=== PATIENT | female | born 1960 | race Caucasian/White ===

== ENCOUNTER 2017-01-17 06:26 | Observation (INO) | payer BC ==
[2016-12-29 10:01] VITALS: BMI 39.0
--- NOTE | 2016-12-29 10:37 | PAT Medication Instructions ---
Service Date Dec 29, 2016. Current Home Medication List Albuterol (Ventolin Hfa), 2 PUFF INH Q4 PRN for SOB/Wheezing Aspirin (Aspirin Ec), 81 MG PO QAM Atorvastatin (Lipitor), 10 MG PO HS Fish Oil ([place]-3), 1 CAP PO BID Fluoxetine (Prozac), 20 MG PO QAM Lorazepam (Ativan), 0.5 MG PO HS Metformin Hcl (Glucophage), 1,000 MG PO BID Metoprolol Succ (Toprol Xl) (Toprol-Xl), 50 MG PO QAM Multivitamin (Multivitamin), 1 TAB PO QAM Potassium Chloride (K-Tabs), 20 MEQ PO QAM Triamterene/Hctz (Dyazide 37.5MG/25MG), 1 TAB PO QAM [Nasonex], 1 SPRAY TIGIST UD PRN for PRN Medication Instructions For Your Scheduled Surgery - Hold the following medications per surgeon's instructions: Aspirin (Aspirin Ec), 81 MG PO QAM Metoprolol Succ (Toprol Xl) (Toprol-Xl), 50 MG PO QAM - Hold the following medications 2 weeks prior to surgery: Fish Oil ([place]-3), 1 CAP PO BID - Hold the following medications 48 hours prior to surgery: Metformin Hcl (Glucophage), 1,000 MG PO BID - Hold the following medications the morning of surgery: Multivitamin (Multivitamin), 1 TAB PO QAM Potassium Chloride (K-Tabs), 20 MEQ PO QAM Triamterene/Hctz (Dyazide 37.5MG/25MG), 1 TAB PO QAM - Take the following medications the morning of surgery with a sip of water OTHERWISE NOTHING TO EAT OR DRINK AFTER MIDNIGHT: Albuterol (Ventolin Hfa), 2 PUFF INH Q4 PRN for SOB/Wheezing (USE IF NEEDED; BRING TO HOSPITAL) [Nasonex], 1 SPRAY TIGIST UD PRN for PRN Fluoxetine (Prozac), 20 MG PO QAM - Take the following medications as scheduled the night before surgery: Albuterol (Ventolin Hfa), 2 PUFF INH Q4 PRN for SOB/Wheezing [Nasonex], 1 SPRAY TIGIST UD PRN for PRN Atorvastatin (Lipitor), 10 MG PO HS Lorazepam (Ativan), 0.5 MG PO HS If you have any questions please call us at [phone] or [phone] or [phone]
[2016-12-29 11:29] LABS: BASO % 0.6 %; BASO ABS # 0.06 K/uL (0-0.2); COMPLETE YES; EOS % 3.2 %; HEMATOCRIT 35.5 % (37-47); IG% 0.1 %; LYMPH % 26.6 %; LYMPH ABS # 2.55 K/uL (1.2-3.4); MEAN CELL VOLUME 82.4 fL (80-100); MEAN CORPUSCULAR HEMOGLOBIN 26.7 pg (25-34); MEAN CORPUSCULAR HGB CONC 32.4 g/dl (32-36); MEAN PLATELET VOLUME 8.9 fL (7.4-10.4); MONO % 7.9 %; NEUT % 61.6 %; PLATELET COUNT 332 K/uL (130-400); RED BLOOD COUNT 4.31 M/uL (4.2-5.4); WHITE BLOOD COUNT 9.59 K/uL (4.8-10.8)
[2016-12-29 11:51] LABS: BUN/CREATININE RATIO 11.7 (10-20); CREATININE 0.81 mg/dl (0.60-1.20); POTASSIUM 3.8 mmol/L (3.5-5.1)
[2016-12-29 11:52] LABS: CALCIUM 9.1 mg/dl (8.5-10.1)
[~2017-01-17] VITALS: Ht 167.6 cm; Wt 110.9 kg
[2017-01-17] VITALS (9 sets, daily range): BP systolic 115–157; BP diastolic 69–87; PULSE 73–90; TEMP 36.6–37.6; O2SAT 94–98; Ht 167.6 cm; Wt 110.9 kg
[~2017-01-17 06:26] MED LIST: ASPI81TA28 PO; ATOR10TA88 PO; FLUO20CA35 PO; LACTATED RINGER'S 1000ML 1,000 ML IV SCH; LORA-741 PO; MCRK/10 PO; METF1000 PO; METO50TA7 PO; MULT-506 PO; NASONEX NAE; OMEG10007 PO; PROPOFOL IV EMULSION 10 MG/ML 100 ML VIAL IV ONE; PRVHFAIN INH; TRIA37.5 PO
[2017-01-17] MEDS ORDERED: FENTANYL CITRATE INJ 50 MCG/1 ML 2 ML VIAL ONE (07:45)
[2017-01-17] MEDS ORDERED: MIDAZOLAM HCL 1 MG/ML 2ML VIAL ONE (07:45)
--- NOTE | 2017-01-17 07:56 | History & Physical Bridge Note ---
H&P Re-Evaluation Bridge Note: I have examined the patient, reviewed the History & Physical and in the interval since the performance of the History & Physical I have noted the following changes of clinical significance: No changes noted
[2017-01-17] MEDS ORDERED: LIDOCAINE HCL 2% 2 ML VIAL (20MG/ML) ONE (08:37)
[2017-01-17] MEDS ORDERED: PROPOFOL IV EMULSION 10 MG/ML 20 ML VIAL IV ONE (08:37)
[2017-01-17] MEDS ORDERED: HEPARIN SOD (PORCINE) 1000 UNIT/ML 10 ML VIAL ONE (09:28)
--- NOTE | 2017-01-17 11:44 | Procedure Note ---
Post-Mod Sedation Assessment General Date of Moderate Sedation Jan 17, 2017. Vital Signs: Vital Signs Past 12 Hours Date Time Temp Pulse Resp B/P Pulse Ox O2 Delivery O2 Flow Rate FiO2 01/17/17 06:45 37.1 90 18 157/69 98 Room Air Review - Discharge Criteria Vital Signs Stable: Yes Alert/Oriented/Conversant: Yes Returned to Baseline Mental St: Yes Nausea Absent/Minimal: Yes Pain/Discomfort/Absent/Minimal: Yes Normal/Baseline Respirations: Yes Active Bleeding?: No Pt Received D/C Instructions: N/A Prescriptions Given: None Specific Proced. D/C Criteria Distal Pulses Present (Cardiac: Yes Groin site assessed-Card Cath: Yes Voided Prior To Discharge: N/A Discharged Patients Adult Escort/Transportation: N/A
[2017-01-17] MEDS ORDERED: ALBUTEROL HFA 8 GM INHALER INH PRN (11:45)
--- NOTE | 2017-01-17 11:46 | [facility] Post Operative Brief Note ---
Immediate Operative Summary Operative Date Jan 17, 2017. Pre-Operative Diagnosis SVT Post-Operative Diagnosis PAT Procedure(s) Performed EPS, 3d mapping of His bundle, C/S os and activation map of the SVT/PAT, Radiofrequency ablation of PAT Surgeon rebeka [place] Feed Attendant Surgeon(s) none Estimated Blood Loss <5cc Findings none Fluids (cc crystalloids) 500cc Specimens none Drains none Anesthesia 4mg versed and 200mcg fentanyl Complication(s) None Disposition PCU
[2017-01-17] MEDS ORDERED: IV FLUIDS COMPLETED PRN (12:00)
[2017-01-17] MEDS ORDERED: ACETAMINOPHEN 325 MG TAB ONE (12:12)
[2017-01-17] MEDS ORDERED: FLUTICASONE PROPIONATE NA SPR 16 GM BTL NAE PRN (14:00)
--- NOTE | 2017-01-17 14:11 | Discharge Instructions ---
Discharge Instructions Admission Reason for Admission: Supraventricular Tachycardia Discharge Discharge Diagnosis / Problem: pat Discharge Goals Goal(s): Improve function Activity Recommendations Activity Limitations: as noted below (do not any heavy lifiting or squating for 1 week) . Current Hospital Diet Patient's current hospital diet: Regular Diet Discharge Diet Recommended Diet: AHA Diet (Heart Healthy) Procedures Procedures Performed: EPS, 3d mapping of His bundle, C/S os and activation map of the SVT/PAT, Radiofrequency ablation of PAT Pending Studies Studies pending at discharge: no Medical Emergencies . Who to Call and When: Medical Emergencies: If at any time you feel your situation is an emergency, please call 911 immediately. . Non-Emergent Contact Non-Emergency issues call your: Hog Driver . . "Provider Documentation" section prepared by Lala Harrell. VTE Core Measure Inpt VTE Proph given/why not?: Treatment not indicated
--- NOTE | 2017-01-17 14:14 | Discharge Summary ---
Discharge Summary Date of Service Jan 17, 2017. Discharge Summary Admission Date: Jan 17, 2017 at 11:43 Discharge Date: Jan 18, 2017 Discharge Disposition: Home Principal Diagnosis: pat Secondary Diagnoses/Problems: htn, hld Procedures: EPS, 3d mapping of the His bundle and c/s os along with activation mapping of the atrial tachycardia, radiofrequency ablation of atrial tachycardia Medication Reconciliation Continued Medications: Albuterol (Ventolin Hfa) 60 Puffs/5400 Mcg Aers 2 PUFF INH Q4 PRN for SOB/Wheezing Aspirin (Aspirin Ec) 81 Mg Tab 81 MG PO QAM Atorvastatin (Lipitor) 10 Mg Tab 10 MG PO HS, TAB Fish Oil ([place]-3) 1 Ea Cap 1 CAP PO BID, CAP Fluoxetine (Prozac) 20 Mg Cap 20 MG PO QAM, CAP Lorazepam (Ativan) 0.5 Mg Tab 0.5 MG PO HS, TAB Metformin Hcl (Glucophage) 1,000 Mg Tab 1000 MG PO BID, TAB Metoprolol Succ (Toprol Xl) (Toprol-Xl) 50 Mg Tabcr 50 MG PO QAM, #30 TAB Multivitamin (Multivitamin) Tab 1 TAB PO QAM, TAB Potassium Chloride (K-Tabs) 10 Meq Tabcr 20 MEQ PO QAM Triamterene/Hctz (Dyazide 37.5MG/25MG) Cap 1 TAB PO QAM, CAP [Nasonex] () 1 SPRAY TIGIST UD PRN for PRN Admission Information Physical Exam (per Admitting): aaox3, nad supple, no jvd nrl s1/s2 no murmur cta b/l no w/r/r soft nt/nd no edema b/l Hospital Course Pt admitted for elective EPS with possible ablation due to SVT. She underwent procedure found to have AT and it was ablated without any complications. She was monitored overnight and discharged home in stable condition. Total time spent on discharge = This includes examination of the patient, discharge planning, medication reconciliation, and communication with other providers. Discharge Instructions ACTIVITY RECOMMENDATIONS: It is common to feel weak and fatigue for a few days. * Do not drive or operate any motorized equipment for the next three days. * Limit stair usage (2 or 3 trips a day only) for the next three days. * Do not lift anything heavier than 10 pounds for the next three days. * Do not engage in vigorous exercise or any sports for the next five days. * You may shower the day after your procedure, but do not immerse the area for three days. Cleanse the site gently with soap and water. SPECIAL CARE INSTRUCTIONS: * You may replace the pressure dressing or band-aid the morning after the procedure. * After your procedure, it is normal to have a small bruise or small lump at the site. Examine your site daily for any change in the bruise or lump, redness, swelling, drainage or numbness. Notify your doctor if any change. BLEEDING: * If there is a small amount of bleeding at the site, lie down and apply firm pressure with a clean cloth for ten minutes. When the bleeding stops, lie quietly keeping the procedure limb straight for six hours. Notify your doctor as soon as possible. * If the bleeding does not stop after ten minutes or if there is a large amount of bleeding or spurting, call 911 immediately. Continue to lie down and hold firm pressure until help arrives. SKIN IRRITATION: * You may experience some redness and/or swelling in the area where radiation was administered. If any skin irritation occurs, please contact your family physician. FOLLOW UP VISIT: Keep any scheduled doctor appointments.
--- NOTE | 2017-01-17 15:41 | Anesthesiology Progress Note ---
Anesthesia Post Op Note Date & Time Jan 17, 2017 at 15:41 Vital Signs Pain Intensity: 4.0 Vital Signs Past 12 Hours Date Time Temp Pulse Resp B/P Pulse Ox O2 Delivery O2 Flow Rate FiO2 01/17/17 13:15 82 18 148/87 94 Room Air 01/17/17 13:00 85 18 143/84 98 Room Air 01/17/17 12:45 36.8 84 20 149/82 94 Room Air 01/17/17 12:35 36.6 84 18 128/80 94 Room Air 01/17/17 12:05 88 16 128/78 96 Nasal Cannula 3 01/17/17 11:55 89 16 119/78 96 Nasal Cannula 3 01/17/17 11:45 72 16 121/76 96 Nasal Cannula 3 01/17/17 11:38 78 16 118/83 96 Nasal Cannula 3 01/17/17 06:45 37.1 90 18 157/69 98 Room Air Notes Mental Status: alert / awake / arousable Nausea / Vomiting: adequately controlled Pain: adequately controlled Airway Patency, RR, SpO2: stable & adequate BP & HR: stable & adequate Hydration State: stable & adequate Anesthetic Complications: no major complications apparent
--- NOTE | 2017-01-17 16:13 | OPERATIVE REPORT ---
DATE OF OPERATION: 01/17/2017 PREOPERATIVE DIAGNOSIS: Supraventricular tachycardia. POSTOPERATIVE DIAGNOSIS: Paroxysmal atrial tachycardia. PROCEDURES: Electrophysiology study, 3D mapping of the His bundle region, coronary sinus os and activation 3D mapping of the atrial tachycardia, radiofrequency ablation of the atrial tachycardia. SURGEON: Dr. Lala Harrell. SAP BUSINESS OBJECTS DEVELOPER: None. ANESTHESIA: Monitored anesthetic care via anesthesiology. A total of 4 mg of Versed, 200 mcg of fentanyl and 1500 mg of propofol. IV FLUIDS: 500 mL. BLOOD LOSS: Less than 5 mL. COMPLICATIONS: None. CONDITION: Stable. URINE OUTPUT: Not applicable. SPECIMENS: None. FINDINGS: None. DRAINS: None. INDICATIONS: This is a 56-year-old female who has a past medical history of hypertension, hyperlipidemia. She has a history of SVT, in which she ended up in the hospital, received adenosine at a rate of 180 beats per minute and it broke to sinus rhythm and so she requested electrophysiology study with possible ablation. CONSENT: Consent was obtained prior to the patient going to the electrophysiology lab. The patient was informed of the risks, benefits, alternatives to the procedure. Risks include but not limited to sudden cardiac , cardiac arrhythmias, cerebrovascular accident, myocardial infarction, injury to the blood vessels, chamber of the heart with the [place] electrical system where she would need a permanent pacemaker, bleeding and infection. The patient understood these risks and agreed to the procedure as planned. Informed consent was obtained. DESCRIPTION OF THE PROCEDURE: The patient was brought into the electrophysiology lab in fasting state. She was connected to continuous cardiac monitoring. A timeout was performed to ensure patient's identity and procedure correctly. The patient received monitored anesthetic care via anesthesiology for the entire case for her comfort level. [place] precautions were maintained throughout the procedure. The patient was prepped and draped over the bilateral groins in normal surgical standard fashion. 10 mL of 1% lidocaine were given in the bilateral groins for local anesthetic. Using the modified Seldinger technique, venous access was obtained in the following manner. The left femoral vein had a 6-Mongolian sheath, followed by a Raymond quad positioned in the right ventricular apex. A 7-Mongolian sheath with initially a Hisser catheter over the His bundle, but then this was eventually changed out for a Cournand into the His bundle. A 7-Mongolian sheath with a Instructure decapolar DF curve positioned down into the His bundle. The right femoral vein initially had a 6-Mongolian sheath with a Raymond quad catheter positioned out into the high right atrium and eventually the SRO sheath with a Mobile Iron ThermoCool SmartTouch ablation catheter. Electrophysiology study was performed with the following findings: Baseline measurements: WI interval 200 milliseconds, QRS 78 milliseconds, QT 300 milliseconds. Sinus cycle length 672 milliseconds, AH 126 milliseconds, HV 46 milliseconds. Of note, when I was positioning the catheters, she did go into SVT and we pace terminated her out of it. Atrial burst pacing was performed and AV Wenckebach was found to be 320 milliseconds. With atrial extrastimuli from the high right atrium, the atrial ERP was found to be 600/240 and 400/200 with AV node ERP less than or equal to the atrial. With double atrial extrastimuli at 400, 350 and 230, tachycardia was induced. Tachycardia cycle length was 368 milliseconds. The VA time was 130 milliseconds, the HV time was positive 40 milliseconds. There was a concentric retrograde A conduction with the earliest A being in the His bundle region. We then went to start 3D mapping of what we thought was atrial tachycardia based on our findings. I did also have to reinduce at one point the tachycardia and this time I needed triples at 400, 380, 270 and 250. We continued to 3D map, localizing the earliest retrograde A to the low septal area, actually very close to the coronary sinus os. The earliest A we got with 3D mapping was about 34 milliseconds, gave a series of radiofrequency ablations at 35 feldman to this region. With 1 ablation, the patient did break out of her atrial tachycardia with the Vv in the last signal. We continued to give a few more anderson in that area. It was also along a ridge area, so we gave anderson on either side of this ridge. Then I removed the ablation catheter from the heart, but it still remained in the body and I performed post-ablation electrophysiology study with the following findings: Sinus cycle length 552 milliseconds, AH is 182 milliseconds, HV 46 milliseconds. With atrial burst pacing, the AV Wenckebach was 320 milliseconds. With atrial extrastimuli, the atrial ERP was 500/240 and 400/240 with the AV node ERP less than or equal to the atrial. With right ventricular extrastimuli, the right ventricular ERP was 600/240 and 400/220. I gave up to triples of extrastimuli from the high right atrium as well as even from the proximal left coronary sinus region and I was not able to induce any atrial tachycardia. Furthermore, I gave atrial burst pacing all the way down to 200 and did not induce any atrial tachycardia. There was an appropriate adequate waiting. Since she was so easily inducible with the catheters and then with doubles, I did not opt to do Isuprel infusion. I deemed that we had successful ablation with her atrial tachycardia. The catheters were all removed from the body and then the sheaths were pulled and manual compression was used to restore hemostasis. IMPRESSION 1. Inducible paroxysmal atrial tachycardia with a tachycardia cycle length 368 milliseconds. VA time of 130 milliseconds, HV of 40 milliseconds and originating from the low right atrial septum, successfully ablated. 2. Normal atrioventricular ernestina function. 3. No evidence of dual atrioventricular ernestina pathway. PLAN: Monitor patient overnight, 12-lead ECG. She cannot do any heavy lifting or squatting for 1 week. She should follow up in my [place] office in 1 month. I attest to the content of the Intraoperative Record and any orders documented therein. Any exceptio ns are noted below.
[2017-01-17] MEDS: METFORMIN HCL 500 MG TAB PO SCH (16:45)
[2017-01-17] MEDS: ACETAMINOPHEN 325 MG TAB PO PRN (17:57)
[2017-01-17] MEDS ORDERED: LORAZEPAM 0.5 MG TAB PO SCH (21:00)
[2017-01-17] MEDS ORDERED: ATORVASTATIN 10 MG TAB PO SCH (21:00)
[2017-01-18] MEDS: ACETAMINOPHEN 325 MG TAB PO PRN (03:30)
[2017-01-18 04:11] VITALS: BP 137/79; PULSE 78; TEMP 36.9; O2SAT 95
[2017-01-18 07:35] VITALS: BP 152/83; PULSE 81; TEMP 37.3; O2SAT 96
[2017-01-18] MEDS ORDERED: PNEUMOCOCCAL POLYSACCHARIDES 25 MCG/0.5 ML VIAL/SYR IM. ONE (08:00)
[2017-01-18] MEDS ORDERED: PNEUMOCOCCAL ADMINISTRATION CHARGE ONE (08:00)
[2017-01-18] MEDS: METFORMIN HCL 500 MG TAB PO SCH (08:29)
[2017-01-18] MEDS ORDERED: POTASSIUM CHLORIDE 20 MEQ TABCR PO SCH (09:00)
[2017-01-18] MEDS ORDERED: METOPROLOL SUCC 50MG EXT REL TAB PO SCH (09:00)
[2017-01-18] MEDS ORDERED: FLUOXETINE HCL 20 MG CAP PO SCH (09:00)
[2017-01-18] MEDS ORDERED: TRIAMTERENE/HCTZ 37.5/25MG CAP PO SCH (09:00)
[2017-01-18] MEDS ORDERED: MULTIVITAMIN TAB PO SCH (09:00)
[2017-01-18] MEDS ORDERED: ASPIRIN 81 MG ECTAB PO SCH (09:00)
[2017-01-18 10:29] VITALS: BP 152/83; PULSE 81; TEMP 37.3; O2SAT 96
--- NOTE | 2017-01-19 12:29 | Cardiology Follow-Up ---
Subjective General Date of Service: Jan 18, 2017. Chief Complaint: none Pt evaluation today including: conversation w/ patient, physical exam, chart review History of Present Illness The patient is a 56 year old female Allergies Coded Allergies: Celecoxib (Verified Allergy, Unknown, HIVES, 01/17/17) Clindamycin (Verified Allergy, Unknown, HIVES, 01/17/17) Erythromycin (Verified Allergy, Unknown, SEVERE GI UPSET, 01/17/17) Iodinated Diagnostic Agents (Verified Allergy, Unknown, HIVES, 01/17/17) Penicillins (Verified Allergy, Unknown, HIVES, 01/17/17) Social History Smoking Status: Never Smoker Hx Tobacco Use In Past Year?: No Hx Alcohol Use - Type And Amou: No Hx Substance Use - Type And Am: No Physical Exam Vital Signs Last Vital Signs Documentation Date Time Temp Pulse Resp B/P Pulse Ox O2 Delivery O2 Flow Rate FiO2 01/18/17 12:00 Room Air 01/18/17 10:29 37.3 81 16 96 01/18/17 07:35 152/83 01/17/17 12:05 3 Physical Exam Constitutional: General Apperance: heathly-appearing Level of Distress: NAD Head: normocephalic, atraumatic Neck: supple Lungs: Auscultation: breath sounds normal, no wheezing Cardiovascular: Heart Auscultation: RRR, normal S1, normal S2, no murmurs Peripheral Pulses: Femoral Pulse: normal on the left, normal on the right (no hematoma) Dorsalis Pedis Pulse: normal on the left, normal on the right Extremities: no edema Assessment and Plan Assessment and Plan Impression: 1. PAT s/p radiofrequency ablation 2. HTN 3. HLD Plan ok for discharge home from cardiac perspective continue home medications no heavy lifting for 1 week f/u in my office in 1 month Laboratory Results ECG:SR Telemetry SR
== END 2017-01-18 12:48 | disposition home or self-care (01) ==
LOC: C.ACU 06:26 → C.2T 11:43
PROVIDERS: ADMIT Internal Medicine; ATTEND Internal Medicine
DX: I47.1 Supraventricular tachycardia (principal); E78.5 Hyperlipidemia, unspecified; I10 Essential (primary) hypertension; M17.9 Osteoarthritis of knee, unspecified; E66.01 Morbid (severe) obesity due to excess calories; Z91.041 Radiographic dye allergy status; Z68.39 Body mass index [BMI] 39.0-39.9, adult; Z88.0 Allergy status to penicillin; Z79.82 Long term (current) use of aspirin; Z85.828 Personal history of other malignant neoplasm of skin; Z82.49 Family history of ischemic heart disease and other diseases of the circulatory system; Z81.8 Family history of other mental and behavioral disorders